=== PATIENT | male | born 1965 | race Caucasian/White ===

== ENCOUNTER 2023-05-02 03:57 | Inpatient (IN) | payer OTHER ==
[~2023-05-02] VITALS: Ht 172.7 cm; Wt 65.8 kg
[2023-05-02 04:12] VITALS: O2SAT 99
[2023-05-02] MEDS ORDERED: SULFAMETH/TRIMETH 800/160 MG TABLET ONE (04:13)
[2023-05-02] MEDS ORDERED: OXYCODONE/APAP 5-325 MG TABLET ONE (04:13)
[2023-05-02] MEDS ORDERED: KETOROLAC TROMETHAMINE 30 MG INJ ONE (04:13)
[2023-05-02] MEDS ORDERED: OXYCODONE/APAP 5-325 MG TABLET PO ONE (04:15)
[2023-05-02] MEDS ORDERED: SULFAMETH/TRIMETH 800/160 MG TABLET PO ONE (04:15)
[2023-05-02] MEDS ORDERED: KETOROLAC TROMETHAMINE 30 MG INJ IM ONE (04:15)
[2023-05-02] MEDS ORDERED: QUET400T PO (04:19)
[2023-05-02] MEDS ORDERED: LISI10TA29 PO (04:19)
[2023-05-02] MEDS ORDERED: ALBU8.5H8 IH (04:19)
[2023-05-02] MEDS ORDERED: HALO100A2 IM (04:19)
[2023-05-02] MEDS ORDERED: LITH300T3 PO (04:19)
[2023-05-02] MEDS ORDERED: VANCOMYCIN IV 1,000 MG in IV DEXTROSE 5% 250 ML IV ONE (04:30)
[2023-05-02] MEDS ORDERED: VANCOMYCIN IV 200 ML ONE (04:36)
[2023-05-02 04:46] LABS: BASOPHILS % (AUTO) 0.3 % (0.0-2.0); EOSINOPHILS # (AUTO) 0.1 K/uL (0.0-0.7); EOSINOPHILS % (AUTO) 0.7 % (0.0-7.0); HEMATOCRIT 34.1 % (36.7-47.1); HEMOGLOBIN 11.6 g/dL (12.5-16.3); LYMPHOCYTES # (AUTO) 1.3 K/uL (0.8-4.8); LYMPHOCYTES % (AUTO) 6.8 % (20.5-51.5); MEAN CORPUSCULAR HEMOGLOBIN 29.2 uug (23.8-33.4); MEAN CORPUSCULAR HGB CONC 34 g/dL (32.5-36.3); MONOCYTES # (AUTO) 0.9 K/uL (0.1-1.30); MONOCYTES % (AUTO) 4.5 % (0.0-11.0); NEUTROPHILS % (AUTO) 87.7 % (38.5-71.5); PLATELET COUNT (AUTO) 435 K/uL (152-348); RED BLOOD CELL COUNT(AUTO) 3.97 MIL/uL (4.06-5.63); WHITE BLOOD COUNT (AUTO) 19.4 K/uL (3.6-10.2)
[2023-05-02 04:53] LABS: DIFFERENTIAL COMMENT 1
[2023-05-02 04:58] LABS: CALCIUM 8.2 mg/dL (8.5-10.1); CREATININE 0.8 mg/dL (0.6-1.3); POTASSIUM 4.2 mmol/L (3.5-5.1)
[2023-05-02 04:58] LABS: *BILIRUBIN,URIN NEGATIVE (NEGATIVE); *BLOOD, URINE NEGATIVE (NEGATIVE); *CLARITY,URINE CLEAR (CLEAR); *COLOR,URINE YELLOW (YELLOW); *KETONES,URINE NEGATIVE (NEGATIVE); *PROTEIN,URINE NEGATIVE (NEGATIVE); LEUKOCYTE ESTERASE ,URINE NEGATIVE (NEGATIVE); NITRITE, URINE NEGATIVE (NEGATIVE); PH,URINE 7.5 (5.0-8.0); UGLUCOSE NEGATIVE (NEGATIVE)
[2023-05-02] MEDS ORDERED: IV NORMAL SALINE 1000 ML BAG IV ONE (05:00)
[2023-05-02 05:04] LABS: ALBUMIN 2.6 g/dL (3.4-5.0); BILIRUBIN,DIRECT 0.1 mg/dL (0.0-0.2); BILIRUBIN,TOTAL 0.3 mg/dL (0.2-1.0); TOTAL PROTEIN, SERUM 6.5 g/dL (6.4-8.2)
[2023-05-02] MEDS ORDERED: LORAZEPAM 2 MG/1 ML VIAL ONE (05:18)
[2023-05-02] MEDS ORDERED: HALOPERIDOL LACTATE 5 MG/1 ML VIAL ONE (05:18)
[2023-05-02] MEDS ORDERED: NICOTINE 21 MG/24HR PATCH TD ONE (05:20)
[2023-05-02 05:25] LABS: *AMPHETAMINE, URINE NEGATIVE (NEGATIVE); *BARBITURATE, URINE NEGATIVE (NEGATIVE); *BENZODIAZEPINE, URINE NEGATIVE (NEGATIVE); *CANNABINOID, URINE POSITIVE (NEGATIVE); *COCCAINE, URINE NEGATIVE (NEGATIVE); *OPIATE, URINE NEGATIVE (NEGATIVE); *PHENCYCLIDINE SCREEN,URINE NEGATIVE (NEGATIVE); FENTANYL, URINE NEGATIVE (NEGATIVE)
[2023-05-02] MEDS ORDERED: LORAZEPAM 2 MG/1 ML VIAL IV ONE (05:30)
[2023-05-02] MEDS ORDERED: HALOPERIDOL LACTATE 5 MG/1 ML VIAL IV ONE (05:30)
[2023-05-02] MEDS ORDERED: NICOTINE 21 MG/24HR PATCH TD SCH (09:00)
[2023-05-02] MEDS ORDERED: ALBUTEROL SULFATE 2.5 MG/3 ML NEBU NEB PRN (10:45)
[2023-05-02] MEDS ORDERED: ALBUTEROL SULFATE 8 GM HFA.AER.AD IH PRN (10:45)
[2023-05-02] MEDS ORDERED: MORPHINE SULFATE 2 MG/1 ML DISP.SYRIN IV PRN (10:45)
[2023-05-02] MEDS ORDERED: LISINOPRIL 10 MG TABLET PO SCH (10:45)
[2023-05-02] MEDS ORDERED: ACETAMINOPHEN 325 MG TABLET PO PRN (10:45)
[2023-05-02] MEDS ORDERED: HYDROCODONE/APAP 5-325MG TABLET PO PRN (10:45)
[2023-05-02] MEDS ORDERED: MAGNESIUM HYDROXIDE 30 ML LIQUID UDC PO PRN (10:45)
[2023-05-02] MEDS ORDERED: ONDANSETRON 4 MG/2 ML VIAL IV PRN (10:45)
[2023-05-02] MEDS ORDERED: IV NS 1000 ML 1,000 ML IV PRN (10:45)
[2023-05-02] MEDS ORDERED: PIPERACILLIN SODIUM/TAZOBACTAM 3.375 G in IV DEXTROSE 5% 50 ML IV SCH (12:00)
[2023-05-02] MEDS ORDERED: Medication Not On Formulary EA (Quetiapine Fumarate (Seroquel) 800 MG) PO SCH (21:00)
[2023-05-02] MEDS ORDERED: APIXABAN 5 MG TABLET PO SCH (21:00)
[2023-05-03] MEDS ORDERED: PANTOPRAZOLE SODIUM 40 MG TABLET.DR PO SCH (07:00)
[2023-05-03] MEDS ORDERED: NICOTINE 21 MG/24HR PATCH TD SCH (09:00)
== END 2023-05-02 11:10 | disposition left against medical advice (07) | DRG 720 ==
LOC: ER 04:00 → MEDSURG3 10:23
PROVIDERS: ADMIT Internal Medicine; ATTEND Internal Medicine
DX: A41.9 Sepsis, unspecified organism (principal); E44.0 Moderate protein-calorie malnutrition; E87.1 Hypo-osmolality and hyponatremia; M84.441A Pathological fracture, right hand, initial encounter for fracture; I82.613 Acute embolism and thrombosis of superficial veins of upper extremity, bilateral; S52.212A Greenstick fracture of shaft of left ulna, initial encounter for closed fracture; D64.9 Anemia, unspecified; F12.10 Cannabis abuse, uncomplicated; F17.210 Nicotine dependence, cigarettes, uncomplicated; L03.114 Cellulitis of left upper limb; I10 Essential (primary) hypertension; Z59.00 Homelessness unspecified; Z68.22 Body mass index [BMI] 22.0-22.9, adult; Z71.6 Tobacco abuse counseling; Y08.09XA Assault by strike by other specified type of sport equipment, initial encounter; Y93.9 Activity, unspecified; Y92.89 Other specified places as the place of occurrence of the external cause; F99 Mental disorder, not otherwise specified
CPT/HCPCS: 36415; 71045; 73090; 73130; 85025; 87040; A4663; G0378; J1630; J1885; J2060; J3370; J7040